=== PATIENT | male | born 1985 | race Caucasian/White ===

== ENCOUNTER 2021-03-18 09:28 | Outpatient (RCR) | payer BC, SELFPAY ==
[2021-03-18 12:39] VITALS: BP 138/80; PULSE 88; RESP 20; TEMP 35.9; O2SAT 97
[2021-03-18] MEDS: ACETAMINOPHEN 325 MG TABLET 650 MG PO (12:43)
[2021-03-18] MEDS: diphenhydrAMINE HCl CAP 25 MG CAPSULE PO (12:43)
[2021-03-18] MEDS: FAMOTIDINE 20 MG TABLET PO (12:44)
[2021-03-18 14:06] VITALS: BP 126/62
--- NOTE | 2021-03-19 12:50 | PC.NURSE ---
Spoke to Mr Mason, he is feeling better, he stated outside of the cough he is doing well. He feels more awake today and alert and is able to interact with his children. He has no questions at this time.
== END 2021-03-18 16:00 ==
LOC: AMCINF 09:28
PROVIDERS: PCP Family Medicine; Visit Provider Internal Medicine Hematology & Oncology
DX: U07.1 COVID-19 (principal)
CPT/HCPCS: A9270; M0243; Q0243

== ENCOUNTER → 2021-04-15 17:49 | Outpatient (CLI) | payer BC, SELFPAY ==
--- NOTE | ~2021-04-15 | XR_ITS ---
EXAMINATION: XR chest 2V DATE: 04/15/2021 18:01 INDICATION: Cough TECHNIQUE: PA and lateral views of the chest are obtained. COMPARISON: None available FINDINGS: The lungs are free of acute opacities. There is no pleural effusion or pneumothorax. The ca rdiomediastinal silhouette is normal. The visualized bones and soft tissues are unremarkable. IMPRESSION: 1. No acute cardiopulmonary abnormality. Reviewed, dictated and finalized at location F. APY AIDE
== END ==
PROVIDERS: PCP Physician Assistant Medical; Visit Provider Physician Assistant Medical
DX: R05.9 Cough, unspecified (principal)
CPT/HCPCS: 71046

== ENCOUNTER 2022-11-30 09:14 | Outpatient (CLI) | payer BC, SELFPAY ==
--- NOTE | 2022-12-08 13:20 | WPDHOMESLEEP ---
Sleep Study - Home Unattended Date of Study: 11/30/22 Ordering Provider: Jensen London MD Interpreting Provider: Symone Dudley, DO Home Sleep Study Type: Apnea Link Air Height: 1.78 m Weight: 111.584 kg Body Mass Index: 35.3 Neck Circumference (inches): 17.5 [place]: 16 Reason for Sleep Study Loud snoring Sleep History The patient is a 37-year-old male with ADHD, prediabetes and GERD that had a sleep study ordered by his primary care for evaluation sleep apnea. The patient rarely awakens from sleep short of breath. He occasionally awakens at night with heartburn, belching or cough. He frequently snores loudly enough that others complain. He rarely has trouble sleeping when he has a cold. He rarely wakes up gasping for air throughout the night. He occasionally has breathing problems at night observed by himself or others. He rarely sweats excessively at night. He denies having heart palpitations or irregular heartbeats during the night. He frequently falls asleep during the day and occasionally falls asleep while driving. He denies sleep paralysis and cataplexy. He rarely has trouble at school or work due to sleepiness. He rarely experiences vivid dreamlike scenes upon awakening or falling asleep. He denies feeling afraid of going to sleep. He rarely has nightmares. He occasionally remembers his dreams. He constantly has thoughts racing through his mind. He occasionally feels sad or depressed and frequently has anxiety. He rarely has muscular tension. He denies noticing parts of his body jerk. He rarely kicks during the night. He rarely has crawling and aching feelings in his legs but denies having leg pain during the night. He denies grinding his teeth during sleep and rarely awakens with morning jaw pain. He is occasionally bothered by pain during the day but rarely awakened by pain during the night. He rarely wakes up feeling stiff in the morning. He occasionally wakes up with sore or achy muscles. He occasionally wakes up with pain in the neck, spine or other joints. He goes to bed between 9:30 to 10:30 p.m. on both weekdays and weekends. It takes him less than 10 minutes to fall asleep. He wakes up 1-3 times throughout the night to urinate and is able to fall back asleep within 10 minutes. He wakes up between 4:30-5:30 a.m. on weekdays and between 5-6 a.m. on the weekends. He typically gets 6 hours of sleep per night he will stay in bed for a few minutes after waking up in the morning. He currently lives with his and 3 children. He denies consuming any caffeinated beverages within 2 hours of bedtime. He does not engage in physical exercise before bedtime. He will watch television before falling asleep. He will take naps in the afternoon or the evening and they are refreshing. He consumes 1-2 cups of caffeinated beverage per day. He will consume 1 alcoholic beverage per day. He denies tobacco and recreational drug use. [facility] Past Medical History Medical History Attention Deficit Hyperactivity Disorder (ADHD) Fatty liver Social History Social History Smoking status: Former smoker Additional smoking assessment comments: socially in his youth Lack of Transportation: No Lack of Food: Never True Current Housing: I Have Housing Concerned About Future Housing: No Difficulty Paying Gas/Electric Bills: No Difficulty Paying for Meds: No Currently Unemployed: No Education: Bachelor's Degree Difficulty w/ Childcare or Family Care: No Spiritual care concerns: No Medications Home Medications Medication Instructions Recorded Confirmed Type cyclobenzaprine 10 mg tablet 10 mg PO TID PRN muscle spasm #30 10/28/22 10/28/22 Rx tabs hydrocodone 5 mg-acetaminophen 325 1 tablet PO Q6H PRN pain #20 tabs 10/28/22 10/28/22 Rx mg tablet Adderall XR 10 mg caps
[2022-12-08 13:29] VITALS: BMI 35.3
== END 2022-12-02 13:23 | disposition home or self-care (01) ==
LOC: ANHCSM 09:16
PROVIDERS: PCP Family Medicine; Visit Provider Family Medicine
DX: G47.9 Sleep disorder, unspecified (principal); G47.33 Obstructive sleep apnea (adult) (pediatric)
CPT/HCPCS: 95806

== ENCOUNTER 2023-08-03 18:39 | Emergency (ER) | payer BC, SELFPAY ==
[2023-08-03 18:42] VITALS: BP 148/86; PULSE 73; RESP 18; TEMP 36.4; O2SAT 99
--- NOTE | 2023-08-03 18:54 | ED.WOUNDLAC ---
HPI - Wound/Laceration General Chief Complaint: Wound/Laceration Stated Complaint: incision came open Time Seen by Provider: 08/03/23 18:46 Source: patient Mode of arrival: ambulatory Limitations: no limitations History of Present Illness HPI narrative: 38-year-old otherwise healthy here for wound check, patient states that he had a biopsy done a week ago had sutures removed yesterday at the doctors office this morning the wound opened up , had clear drainage . h Onset (ago): day(s) (1) Extremity Location: Left: thigh Related Data Allergies Allergy/AdvReac Type Severity Reaction Status Date / Time No Known Allergies Allergy Verified 08/03/23 18:44 Review of Systems Review of Systems: All systems reviewed & are unremarkable except as noted in HPI and below Constitutional: Constitutional: Reports no additional constitutional complaints Eyes: Eyes: Reports no additional eye complaints ENT: Reports system reviewed and no additional complaints, except as documented Cardiovascular: Cardiovascular: Reports no additional cardiovascular complaints Respiratory: Respiratory: Reports no additional respiratory complaints Gastrointestinal: Gastrointestinal: Reports no additional gastrointestinal complaints Musculoskeletal: Musculoskeletal: Reports no additional musculoskeletal complaints Integumentary/Breasts: Skin/Breast: Reports system reviewed and no additional complaints, except as docu Neurologic: Reports system reviewed and no additional complaints, except as documented Endocrine: Endocrine: Reports no additional endocrine complaints Allergic/Immunologic: Allergic/Immunologic: Reports no additional allergic/immunologic complaints PMFSH Past Medical History Medical History Attention Deficit Hyperactivity Disorder (ADHD) COVID-19 Fatty liver Lateral epicondylitis of right elbow Near syncope Social History Social History Smoking status: Former smoker Additional smoking assessment comments: socially in his youth Lack of Transportation: No Lack of Food: Never True Current Housing: I Have Housing Concerned About Future Housing: No Difficulty Paying Gas/Electric Bills: No Difficulty Paying for Meds: No Currently Unemployed: No Education: Bachelor's Degree Difficulty w/ Childcare or Family Care: No Spiritual care concerns: No Exam Narrative: GENERAL: Well-appearing, well-nourished, and in no acute distress. HEAD: Normocephalic, atraumatic. EYES: PERRLA and EOMI. ENT: Nares clear, no rhinorrhea or epistaxis. Mucous membranes moist. NECK: Supple. CHEST: Clear to auscultation. No respiratory distress. HEART: Regular rate and rhythm. No murmur heard. Normal peripheral pulses. ABDOMEN: Soft, nontender, nondistended, normal active bowel sounds. EXTREMITIES: Normal range of motion. No edema. a small wound on the left medial aspect of the thigh , no sign of infection. SKIN: Warm, dry, no rash. NEURO: No focal deficits. Alert and oriented x3. PSYCH: Normal mood and affect. Course Course Emergency Course: informed him about wound care , no antibiotic is indicated at this time Vital Signs Vital signs: Vital Signs Temperature 36.4 C 08/03/23 18:42 Pulse Rate 73 08/03/23 18:42 Respiratory Rate 18 08/03/23 18:42 Blood Pressure 148/86 H 08/03/23 18:42 Pulse Oximetry 99 08/03/23 18:42 Oxygen Delivery Room Air 08/03/23 18:42 Temperature 36.4 C 08/03/23 18:42 Pulse Rate 73 08/03/23 18:42 Respiratory Rate 18 08/03/23 18:42 Blood Pressure 148/86 H 08/03/23 18:42 Pulse Oximetry 99 08/03/23 18:42 Oxygen Delivery Room Air 08/03/23 18:42 Discharge Plan Discharge Clinical Impression: Wound dehiscence Condition: Stable Instructions: Antibiotic Form, Wound Dehiscence (ED) Additional Instructions: Keep the wound clean , wa
[2023-08-03 19:16] VITALS: BP 135/78; PULSE 77; RESP 15; O2SAT 99
== END 2023-08-03 19:17 | disposition home or self-care (01) ==
PROVIDERS: Emergency Provider Family Medicine; PCP Family Medicine
DX: T81.31XA Disruption of external operation (surgical) wound, not elsewhere classified, initial encounter (principal); Y83.8 Other surgical procedures as the cause of abnormal reaction of the patient, or of later complication, without mention of misadventure at the time of the procedure
CPT/HCPCS: 99281